=== PATIENT | female | born 1950 | race Caucasian/White ===

== ENCOUNTER 2020-08-08 13:33 | Observation (INO) | payer OTHER ==
[~2020-08-08] VITALS: Ht 165.1 cm; Wt 82.1 kg
[2020-08-08 15:01] LABS: HEMOGLOBIN 12.4 gm/dl (12.3-15.3); RED BLOOD COUNT 4.32 M/UL (4.00-5.10); WHITE BLOOD COUNT 7.4 K/UL (4.5-11.0)
[2020-08-08 15:23] LABS: BUN/CREATININE RATIO 21 (0-10)
[2020-08-08] MEDS ORDERED: SERTRALINE HCL100 MG PO (19:52)
[2020-08-08] MEDS ORDERED: ASPIRIN CHEWABL81 MG PO (19:53)
[2020-08-08] MEDS ORDERED: METFORMIN HCL1000 MG PO (19:53)
[2020-08-08] MEDS ORDERED: TRULICITY0.75 MG/0. SQ (19:55)
[2020-08-08] MEDS ORDERED: ALDACTONE25 MG PO (23:35)
[2020-08-09 03:08] LABS: HEMOGLOBIN 12.5 gm/dl (12.3-15.3); RED BLOOD COUNT 4.36 M/UL (4.00-5.10); WHITE BLOOD COUNT 7.2 K/UL (4.5-11.0)
[2020-08-09 03:54] LABS: BUN/CREATININE RATIO 19 (0-10)
[2020-08-10 05:53] LABS: HEMOGLOBIN 12.2 gm/dl (12.3-15.3); RED BLOOD COUNT 4.29 M/UL (4.00-5.10); WHITE BLOOD COUNT 6.1 K/UL (4.5-11.0)
[2020-08-10 06:06] LABS: BUN/CREATININE RATIO 20 (0-10)
[2020-08-10] MEDS ORDERED: HUMALOG 10100 UNITS/ SC (13:55)
[2020-08-11 05:14] LABS: HEMOGLOBIN 11.7 gm/dl (12.3-15.3); RED BLOOD COUNT 4.16 M/UL (4.00-5.10); WHITE BLOOD COUNT 6.1 K/UL (4.5-11.0)
[2020-08-11 05:35] LABS: BUN/CREATININE RATIO 21 (0-10)
[2020-08-12 06:44] LABS: HEMOGLOBIN 13.1 gm/dl (12.3-15.3); RED BLOOD COUNT 4.56 M/UL (4.00-5.10); WHITE BLOOD COUNT 5.9 K/UL (4.5-11.0)
[2020-08-12 09:14] LABS: BUN/CREATININE RATIO 22 (0-10)
[2020-08-12] MEDS ORDERED: HYGROTON TAB 2525 MG PO (16:55)
[2020-08-12] MEDS ORDERED: AMLODIPINE BESYL5 MG PO (16:55)
[2020-08-12] MEDS ORDERED: HUMALOG 10100 UNITS/ SC (16:57)
[2020-08-12] MEDS ORDERED: COZAAR 50MG TAB50 MG PO (16:57)
[2020-08-13] MEDS ORDERED: COZAAR 50MG TAB50 MG PO (08:56)
[2020-08-14 07:48] LABS: BUN/CREATININE RATIO 23 (0-10)
[2020-08-15 04:23] LABS: BUN/CREATININE RATIO 21 (0-10)
[2020-08-15] MEDS ORDERED: HUMALOG 10100 UNITS/ SC (09:28)
[2020-08-15] MEDS ORDERED: LANTUS INS100 UTS/M1 SQ (09:28)
== END 2020-08-15 11:50 ==
LOC: ER1 13:33 → ZEROF 17:44 → MED SURG 4 17:44
PROVIDERS: Family Medicine; Internal Medicine; ADMIT Internal Medicine
DX: R29.6 Repeated falls (principal); R41.82 Altered mental status, unspecified; G91.2 (Idiopathic) normal pressure hydrocephalus; I16.0 Hypertensive urgency; I10 Essential (primary) hypertension; E11.9 Type 2 diabetes mellitus without complications; I51.81 Takotsubo syndrome; R32 Unspecified urinary incontinence; F32.9 Major depressive disorder, single episode, unspecified; Z96.659 Presence of unspecified artificial knee joint; Z85.820 Personal history of malignant melanoma of skin; Z79.899 Other long term (current) drug therapy; Z79.4 Long term (current) use of insulin; Z20.822 Contact with and (suspected) exposure to COVID-19
CPT/HCPCS: 36415; 70450; 70551; 71045; 80048; 80053; 81001; 82550; 82553; 82607; 82962; 83036; 83690; 84439; 84443; 84484; 85025; 85027; 93005; 96372; 96374; 96375; 96376; 97116-GP-CQ; 97162; 97166; 97530; 97535; 99285; G0378; J0360; J1650; J2405; U0002